=== PATIENT | female | born 1990 | race Caucasian/White ===

== ENCOUNTER 2017-05-24 03:23 | Emergency (ER) | payer MEDICAID ==
[~2017-05-24] VITALS: Ht 154.9 cm; Wt 68.0 kg
[~2017-05-24 03:23] MED LIST: FERR27TA PO; FOL8 PO
[2017-05-24 03:30] VITALS: Ht 154.9 cm; Wt 68.0 kg
[2017-05-24] MEDS ORDERED: HYDROmorphONE 1 MG/ML SYG IV STA ×2 (03:47→05:31)
[2017-05-24] MEDS ORDERED: SOD CHLORIDE 0.9% 500 ML IV STA (03:47)
[2017-05-24] MEDS ORDERED: ONDANSETRON 4 MG INJ IV STA ×2 (03:47→05:31)
--- NOTE | 2017-05-24 03:57 | ERD ---
ER Documentation Chief Complaint Date/Time DATE: 05/24/17 TIME: 03:56 Chief Complaint c/o JUAN pain x 1 day. (+) nausea. Worse with food. HPI This is a 26-year-old female complains of right upper quadrant pain for 1 day with nausea no vomiting diarrhea. She says the pain is worse with food does have occasional radiation to the right back. She has no fever no chest pain or shortness of breath. The pain is described as crampy with sharp episodes. ROS All systems reviewed and are negative except as per history of present illness. Medications Home Meds Reported Medications Ferrous Sulfate (Iron) 1 Tab Tablet, 1 TAB PO DAILY 12/28/12 Folic Acid (Fa-8) 0.8 Mg Tablet, 1 TAB PO DAILY 10/11/12 Allergies Allergies: Coded Allergies: No Known Allergy (Verified , 10/11/12) PMhx/Soc Hx Alcohol Use: No Hx Substance Use: No Hx Tobacco Use: No FmHx Family History: No coronary disease Physical Exam Vitals Vital Signs Date Time Temp Pulse Resp B/P Pulse Ox O2 Delivery O2 Flow Rate FiO2 05/24/17 04:11 98.0 78 20 124/85 99 Room Air 05/24/17 03:30 98.3 84 18 119/68 99 Physical Exam Const: Well-developed, well-nourished Head: Atraumatic, normocephalic Eyes: Normal Conjunctiva, PERRLA, EOMI, normal sclera, no nystagmus ENT: Normal External Ears, Nose and Mouth, moist mucus membranes. Neck: Full range of motion. No meningismus, no lymphadenopathy. Resp: Clear to auscultation bilaterally, no wheezing, rhonchi, rales Cardio: Regular rate and rhythm, no murmurs, S1 S2 present Abd: Soft, mild to moderate tenderness in the right upper quadrant, non distended. Normal bowel sounds, no guarding or rebound, no pulsitile abdominal masses or bruits Skin: No petechiae or rashes, no ecchymosis , no maculopapular rash Back: No midline or flank tenderness Ext: No cyanosis, or edema, FROM x 4, normal inspection, neurovascularly intact x 4 Neur: Awake and alert, STR 5/5 x 4, sensation intact x 4, no focal findings, cerebellum intact Psych: Normal Mood and Affect Result Diagram: 05/24/17 0350 05/24/17 0350 Results 24 hrs Laboratory Tests Test 05/24/17 03:50 05/24/17 04:02 White Blood Count 9.710^3/ul Red Blood Count 4.3410^6/ul Hemoglobin 9.0g/dl Hematocrit 30.5% Mean Corpuscular Volume 70.3fl Mean Corpuscular Hemoglobin 20.7pg Mean Corpuscular Hemoglobin Concent 29.5g/dl Red Cell Distribution Width 16.9% Platelet Count 03435^3/UL Mean Platelet Volume 12.2fl Neutrophils % 66.5% Lymphocytes % 24.2% Monocytes % 7.9% Eosinophils % 0.8% Basophils % 0.4% Nucleated Red Blood Cells % 0.0/100WBC Neutrophils # 6.410^3/ul Lymphocytes # 2.310^3/ul Monocytes # 0.810^3/ul Eosinophils # 0.110^3/ul Basophils # 0.010^3/ul Nucleated Red Blood Cells # 0.010^3/ul Sodium Level 145mmol/L Potassium Level 4.1mmol/L Chloride Level 104mmol/L Carbon Dioxide Level 24mmol/L Anion Gap 21 Blood Urea Nitrogen 16mg/dl Creatinine 0.66mg/dl Glucose Level 98mg/dl Calcium Level 9.8mg/dl Total Bilirubin 0.1mg/dl Direct Bilirubin 0.00mg/dl Indirect Bilirubin 0.1mg/dl Aspartate Amino Transf (AST/SGOT) 22IU/L Alanine Aminotransferase (ALT/SGPT) 24IU/L Alkaline Phosphatase 96IU/L Total Protein 7.6g/dl Albumin 4.4g/dl Globulin 3.20g/dl Albumin/Globulin Ratio 1.37 Lipase 237U/L Bedside Urine pH (LAB) 6.5 Bedside Urine Protein (LAB) Negative Bedside Urine Glucose (UA) Negative Bedside Urine Ketones (LAB) Negative Bedside Urine Blood Negative Bedside Urine Nitrite (LAB) Negative Bedside Urine Leukocyte Esterase (L 1+ Current Medications Medications (Trade) Dose Ordered Sig/Shital Route PRN Reason Start Time Stop Time Status Last Admin Dose Admin Sodium Chloride (NS) 500 ml @ 500 mls/hr Q1H STAT IV 05/24/17 03:47 05/24/17 04:46 DC 05/24/17 03:52 Hydromorphone HCl (Dilaudid) 1 mg ONCE STAT IV 05/24/17 03:47 05/24/17 03:49 DC 05/24/17 03:51 Ondansetron HCl (Zofran Inj) 4 mg ONCE STAT IV 05/24/17 03:47 05/24/17 03:49 DC 05/24/17 03:52 Procedures/MDM Right upper quadrant ultrasound by radiologist demonstrates a 10.7 cm distended gallbladder with gallstones but the wall and common bile duct are normal. No evidence of cholecystitis Patient's blood work is unremarkable no elevated liver function test her white blood count she is afebrile. Pain is controlled on told her warning signs to return and will refer to general surgery for gallbladder removal later and I told her home diet care as well Departure Diagnosis: Primary Impression: Gallstones Condition: Stable JOYCE BOCANEGRA DO May 24, 2017 03:57
[2017-05-24 03:59] LABS: URINE BLOOD (Dip) POC Negative (NEGATIVE)
[2017-05-24 04:11] VITALS: BP 124/85; PULSE 78; RESP 20; TEMP 98
[2017-05-24 04:26] LABS: BASOPHILS % 0.4 % (0.0-2.0); EOSINOPHILS # 0.1 10^3/ul (0.0-0.5); EOSINOPHILS % 0.8 % (0.0-7.0); HEMATOCRIT 30.5 % (37.0-47.0); LYMPHOCYTES # 2.3 10^3/ul (0.8-2.9); LYMPHOCYTES % 24.2 % (15.0-51.0); MEAN CORPUSCULAR HEMOGLOBIN 20.7 pg (29.0-33.0); MEAN CORPUSCULAR HGB CONC 29.5 g/dl (32.0-37.0); MEAN CORPUSCULAR VOLUME 70.3 fl (82.0-101.0); MEAN PLATELET VOLUME 12.2 fl (7.4-10.4); MONOCYTE # 0.8 10^3/ul (0.3-0.9); MONOCYTES % 7.9 % (0.0-11.0); NEUTROPHIL # 6.4 10^3/ul (1.6-7.5); NEUTROPHILS % 66.5 % (39.0-77.0); PLATELET COUNT 346 10^3/UL (140-415); RED BLOOD COUNT 4.34 10^6/ul (4.20-5.40); RED CELL DISTRIBUTION WIDTH 16.9 % (11.5-14.5); WHITE BLOOD COUNT 9.7 10^3/ul (4.8-10.8)
[2017-05-24 05:00] LABS: ALBUMIN 4.4 g/dl (3.3-4.9); ALBUMIN/GLOBULIN RATIO 1.37; BILIRUBIN,INDIRECT 0.1 mg/dl (0-1.1); BILIRUBIN,TOTAL 0.1 mg/dl (0.2-1.3); CALCIUM 9.8 mg/dl (8.4-10.2); CREATININE 0.66 mg/dl (0.44-1.00); POTASSIUM 4.1 mmol/L (3.5-5.1); TOTAL PROTEIN 7.6 g/dl (6.1-8.1)
[2017-05-24] MEDS ORDERED: HYDR-902 PO (05:30)
[2017-05-24] MEDS ORDERED: ONDA4TAB14 PO (05:30)
[2017-05-24] MEDS ORDERED: DICY10CA60 PO (05:30)
--- NOTE | 2017-05-24 05:48 | RADRPT ---
PROCEDURE: ULTRASOUND LIMITED ABDOMEN CLINICAL INDICATION: 26-year-old female with abdominal pain. TECHNIQUE: Multiple sonographic of the right upper quadrant of the abdomen were obtained. The imag es were reviewed on a PACS workstation. COMPARISON: None. FINDINGS: The pancreas is not well visualized secondary to overlying bowel gas. The liver displays diffuse increase echogenicity consistent with fatty infiltration. The liver measu res 15.8 cm in length. No evidence of intrahepatic biliary ductal dilatation is seen. The portal an d hepatic veins are unremarkable. The gallbladder is distended and contains multiple shadowing stones. The gallbladder wall thickness is within normal limits measuring 2.3 mm. No pericholecystic fluid is seen. The common bile duct me asures 2.0 mm and is not dilated. The right kidney displays normal echogenicity. The right kidney measures 10.7 cm in maximal length. No caliectasis or hydronephrosis is seen. No free fluid is seen. IMPRESSION: 1. Diffuse fatty infiltration of the liver. 2. Distended gallbladder with cholelithiasis. .Philip Adams MD, Date Time Electronically viewed and signed by .Philip Adams MD, on 05/24/2017 05:46 .M/
== END 2017-05-24 06:09 | disposition home or self-care (01) ==
LOC: E/R 03:23
DX: K80.20 Calculus of gallbladder without cholecystitis without obstruction (principal); R11.0 Nausea
CPT/HCPCS: 36415; 76705; 80053; 81003; 83690; 85025; 96374; 96375; 96376; J1170; J2405; J7040; Z7502